=== PATIENT | male | born 1940 | race Caucasian/White ===

== ENCOUNTER 2018-02-16 10:49 | Emergency (ER) | payer OTHER, MEDICARE, SELFPAY ==
[2018-02-16 10:51] VITALS: BP 147/63; PULSE 80; RESP 15; TEMP 36.3; O2SAT 96; BMI 42.2
--- NOTE | 2018-02-16 11:31 | ED.VISSUMM ---
- ER Visit Summary Date of Service: 02/16/18 Chief Complaint: Right facial droop History of Present Illness: The patient is a 77 M who was sent for CAT scan. He complains of right facial droop and inability to completely close his right eye over the past 3-4 days. He was seen at the [facility] in the office today. His physician stated that she could not be sure if it was Kent's palsy or not and he needed to go to the ER to get a CAT scan to be sure. The patient has no other neurological symptoms. He denies any extremity weakness or paresthesias. No speech difficulty or slurred speech. No aphasia. He also complains of some discomfort behind his right ear and on the right side of his face. No history of prior similar symptoms. No history of coronary disease or stroke. 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 I am not concerned for stroke. I explained to patient and family that in my medical opinion CT imaging is not indicated. They are agreeable with the plan to defer and treat for Kent's palsy. He was given a prescription for Medrol Dosepak. He was advised to monitor his blood sugars since he is an insulin-dependent diabetic. They were instructed on eye care including artificial tears. He was instructed on signs and symptoms to monitor for and conditions under which to return to the emergency department. Treatment Plan: [] Disposition: Discharge Impression: Kent's palsy This note was generated with [employer] dictation software. It may contain incorrect words, spelling, and punctuation that were not noted in review of the chart prior to signing ED Disposition - Plan for ED Patient: Chief Complaint: Neuro S/Sx Referrals: Adan Hernandez MD [Primary Care Provider] -
--- NOTE | 2018-02-16 11:34 | ED.DCSUM_ITS ---
- ER Visit Summary Date of Service: 02/16/18 Chief Complaint: Right facial droop History of Present Illness: The patient is a 77 M who was sent for CAT scan. He complains of right facial droop and inability to completely close his right eye over the past 3-4 days. He was seen at the [facility] in the office today. His physician stated that she could not be sure if it was Kent's palsy or not and he needed to go to the ER to get a CAT scan to be sure. The patient has no other neurological symptoms. He denies any extremity weakness or paresthesias. No speech difficulty or slurred speech. No aphasia. He also complains of some discomfort behind his right ear and on the right side of his face. No history of prior similar symptoms. No history of coronary disease or stroke. He is treated for diabetes hypertension and high cholesterol as well as M?ni?re' s disease Physical Examination: Afebrile vitals are unremarkable Moist mucous membranes Heart regular rate and rhythm Lungs are clear Abdomen soft NIH stroke scale is 2 due to right-sided facial weakness he has weakness of the upper and lower face there is facial droop there are asymmetric forehead creases there is asymmetry on raising his eyebrows he is unable to tightly close the right eye there are no other focal or lateralizing neurological deficits Test Results: Not indicated Emergency Department Course and Treatment: 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 I am not concerned for stroke. I explained to patient and family that in my medical opinion CT imaging is not indicated. They are agreeable with the plan to defer and treat for Kent's palsy. He was given a prescription for Medrol Dosepak. He was advised to monitor his blood sugars since he is an insulin- dependent diabetic. They were instructed on eye care including artificial tears. He was instructed on signs and symptoms to monitor for and conditions under which to return to the emergency department. Treatment Plan: [] Disposition: Discharge Impression: Kent's palsy This note was generated with [employer] dictation software. It may contain incorrect words, spelling, and punctuation that were not noted in review of the chart prior to signing ED Disposition - Plan for ED Patient: Chief Complaint: Neuro S/Sx Referrals: Adan Hernandez MD [Primary Care Provider] -
--- NOTE | 2018-02-16 11:34 | ED.DEP ---
ED Disposition - Plan for ED Patient: Chief Complaint: Neuro S/Sx Instructions: ED [place] Palsy Prescriptions: MethylPREDNISolone DosePak [Medrol DosePak] 4 mg PO UD #1 box Referrals: Adan Hernandez MD [Primary Care Provider] -
[2018-02-16 12:05] VITALS: BP 123/67; PULSE 62; RESP 18; O2SAT 94
--- NOTE | 2018-02-16 12:09 | ED.RN ---
PT HAVING R FACIAL DROOP. NO OTHER COMPLAINTS
== END 2018-02-16 12:10 | disposition home or self-care (01) ==
PROVIDERS: Emergency Provider Emergency Medicine; Family Provider Family Medicine; PCP Family Medicine
DX: G51.0 Bell's palsy (principal); R29.702 NIHSS score 2; E11.9 Type 2 diabetes mellitus without complications; I10 Essential (primary) hypertension; E78.00 Pure hypercholesterolemia, unspecified; H81.09 Meniere's disease, unspecified ear; Z79.4 Long term (current) use of insulin; Z79.899 Other long term (current) drug therapy
CPT/HCPCS: 99282

== ENCOUNTER 2018-12-27 09:05 | Emergency (ER) | payer MEDICARE, SELFPAY ==
[2018-12-27 09:07] VITALS: PULSE 88; RESP 14; TEMP 36.6; O2SAT 95; BMI 41.8
--- NOTE | 2018-12-27 09:23 | CT_ITS ---
STUDY: CT ABDOMEN AND PELVIS WITHOUT CONTRAST REASON FOR EXAM: Male, 78 years old. 4 day history of low back pain and constipation. RADIATION DOSAGE (If Supplied By Facility): CTDIvol = ( 23.60 ) mGy, DLP = ( 1291.17 ) mGycm TECHNIQUE: Transaxial images were obtained from the dome of the diaphragm to the symphysis pubis without oral contrast, and without intravenous contrast. Sagittal and coronal images were reconstructed. Individualized dose optimization techniques were used for this CT. COMPARISON: Comparison is made with prior study dated February 01, 2009. FINDINGS: Mild degree of increased markings at the lung bases suggestive of scarring. There is evidence of calcific pleural plaques on the right side. Coronary artery calcification. Normal liver. Small gallstones. Normal spleen. There is diffuse enlargement of the pancreas with daren-pancreatic edema suggesting acute pancreatitis. Normal bilateral adrenal glands. 3 mm calculus in the lower pole calyx of the right kidney. Stable 1.5 cm cyst in the lateral inferior pole of the left kidney. Normal visualized stomach. Normal small intestine. Normal colon. The appendix is visualized and appears normal. There is diffuse atherosclerotic calcification of the abdominal aorta, without a demonstrated aneurysm. Normal inferior vena cava. There is borderline retroperitoneal lymphadenopathy with enlarged nodes no greater than 10mm in the short axis diameter. Normal urinary bladder. Small lymph nodes in the inguinal regions bilaterally. There are diffuse degenerative changes of the visualized lumbar spine. Loss of the normal lumbar lordosis. CT/Abdomen/Pelvis without Cont IMPRESSION: Small gallstones. Inflammatory changes seen in the region of the pancreas suggestive of pancreatitis. Small left renal cyst. 3 mm calculus in the lower pole calyx of the right kidney. Electronically Signed: Edi Cormier, at 10:16 EST , Service support ,
[2018-12-27 09:56] LABS: ALB/GLOB Ratio 0.7 RATIO (0.9-2.4); AST(SGOT) 26 U/L (15-37); Absolute Lymphocyte Count 1.09 X10^3/ul (0.83-4.51); Absolute Neutrophil Count 7.3 X10^3/uL (2.0-7.7); Alanine Aminotransfer ALT/SGPT 23 U/L (16-61); Albumin, Serum 3.3 g/dL (3.2-5.0); Alkaline Phosphatase 154 U/L (45-117); Anion Gap 7 (5-15); BUN 20 mg/dL (7-18); BUN/Creat Ratio 15.3 RATIO (10-20); Basophil# 0.03 X10^3/uL; Basophil% 0.3 % (0-1); Calcium,Total 8.9 mg/dL (8.5-10.1); Chloride 103 mmol/L (98-107); Creatinine, Serum 1.31 mg/dL (0.70-1.30); EST Glomerular Filtration Rate 56 mL/min (>60); Eosinophil# 0.14 X10^3/uL; Eosinophils% 1.5 % (0-5); Est Glom Filt Rate - Afr Amer 68 mL/min (>60); Estimated Creatinine Clearance 47.99 ml/min; Globulin 4.5 g/dL (2.2-4.2); Glucose 122 mg/dL (74-106); Hematocrit 46.5 % (40-54); Hemoglobin 14.3 g/dl (13.0-16.5); Lipase 44 U/L (73-393); Lymphocyte # 1.09 X10^3/ul (4.0); Lymphocyte % 11.8 % (19-41); Mean Corp Hgb Conc 30.8 g/gl (32-36); Mean Corpuscular Hgb 28.7 pg (27.0-32.0); Mean Corpuscular Volume 93.4 fL (80-94); Mean Platelet Vol. 9.9 fl (6.2-12.0); Monocyte# 0.68 X10^3/uL; Monocyte% 7.4 % (0-10); Neutrophil # 7.28 X10^3/uL (2.7-7.7); Neutrophil % 78.8 % (47-70); Platelet Count 206 K/mm3 (150-450); Potassium 4.4 mmol/L (3.5-5.1); Protein, Total 7.8 g/dL (6.4-8.2); RBC Distribution Width CV 14.7 % (11.6-14.6); RBC Distribution Width SD 48.4 fl (35.1-43.9); Red Blood Count 4.98 M/mm3 (4.6-6.2); Sodium Level 139 mmol/L (136-145); White Blood Count 9.2 K/mm3 (4.4-11.0)
[2018-12-27 10:01] LABS: POSITIVE COUNT NO; POSITIVE DIFFERENTIAL NO; POSITIVE MORPHOLOGY NO
[2018-12-27 11:39] LABS: Mucous, Urine 0 SEEN /hpf (<or=2+)
[2018-12-27 11:40] LABS: Color, Urine Yellow (Yellow); Glucose, Dipstick Normal (Normal); Ketone-Dipstick Negative (Negative); Leukocyte Esterase-Dipstick 500 /ul (Negative); Nitrite-Dipstick Negative (Negative); Occult Blood-Urine 10 /ul (Negative); Protein-Dipstick Negative (Negative); Urine Bilirubin Dipstick Negative (Negative); Urine Clarity Clear (Clear); Urine Urobilinogen Normal (Normal)
[2018-12-27 11:50] LABS: White Blood Cells >100 SEEN /hpf (0-5)
[2018-12-27 11:51] LABS: Bacteria 2+ /hpf (None Seen); Red Blood Cells-Urine 5-10 SEEN /hpf (0-5); Squamous Epithelial Cells - UA 5-10 SEEN /hpf (0-5)
--- NOTE | 2018-12-27 12:25 | ED.VISSUMM ---
- ER Visit Summary Date of Service: 12/27/18 Chief Complaint: Back pain History of Present Illness: The patient is a 78 M who states that for the past 4 days he has had an aching in his low back. It is on both sides. He notes is worse with movement. He states that on December 17 he was diagnosed with a urinary tract infection and took Keflex for 7 days. States this cleared his painful urination but not his back pain. [facility]. Patient has multiple medical problems including venous stasis of lower extremities BPH chronic renal failure lumbar disc disease diabetes and hypertension. He denies any fevers. Patient thinks that maybe this is a kidney stone disease had that before. Physical Examination: Gen: Well-nourished well-developed Head: Normocephalic atraumatic morbidly obese Eyes: Perrl EOMI ENT: TMs clear no rhinorrhea moist mucous membranes Neck: Supple no lymphadenopathy no JVD nontender CVS: Regular rate rhythm no murmurs normal S1-S2 Respiratory: No distress clear to auscultation bilaterally chest nontender Abdomen: Soft nontender nondistended normal bowel sounds no masses Back: Tender to palpation in lumbar paraspinal musculature bilaterally Extremity: 2-3+ edema with venous stasis chronic skin changes Skin: Normal color no rash Neuro: alert orientated ?3 CN II-XII intact normal strength sensation reflexes gait cerebellar Psych: Normal affect normal mood Test Results: Urine greater than 100 white cells 5-10 red blood cells 2+ bacteria negative nitrates. White count is normal 9.2. CT the flank does not demonstrate any obvious kidney stone. Emergency Department Course and Treatment: I will write the patient Cipmaribell Stoddardco as we await urine culture. [facility] Impression: 1. Acute low back pain 2. Urinary tract infection This note was generated with [employer] dictation software. It may contain incorrect words, spelling, and punctuation that were not noted in review of the chart prior to signing ED Disposition - Plan for ED Patient: Disposition: Home or Assisted Living Instructions: ED Constipation, ED UTI Pyelonephritis Male Prescriptions: Hydrocodone Bitart/Apap 5-325 [[place] 5MG-325MG] 1 tab PO Q6H PRN PRN 3 Days #10 tab PRN Reason: Pain Ciprofloxacin [Cipro] 500 mg PO BID #14 tab Referrals: Adan Hernandez MD [Primary Care Provider] - Additional Instructions: Follow-up with your primary care physician in 5-7 days Return if worsening or concerns (fever vomiting worsening pain
--- NOTE | 2018-12-27 12:29 | ED.DCSUM_ITS ---
- ER Visit Summary Date of Service: 12/27/18 Chief Complaint: Back pain History of Present Illness: The patient is a 78 M who states that for the past 4 days he has had an aching in his low back. It is on both sides. He notes is worse with movement. He states that on December 17 he was diagnosed with a u rinary tract infection and took Keflex for 7 days. States this cleared his painful urination but not his back pain. [facility]. Patient has multiple medical problems including venous stasis of lower extremities BPH chronic renal failure lumbar disc disease diabetes and hypertension. He denies any fevers. Patient thinks that maybe this is a kidney stone disease had that before. Physical Examination: Gen: Well-nourished well-developed Head: Normocephalic atraumatic morbidly obese Eyes: Perrl EOMI ENT: TMs clear no rhinorrhea moist mucous membranes Neck: Supple no lymphadenopathy no JVD nontender CVS: Regular rate rhythm no murmurs normal S1-S2 Respiratory: No distress clear to auscultation bilaterally chest nontender Abdomen: Soft nontender nondistended normal bowel sounds no masses Back: Tender to palpation in lumbar paraspinal musculature bilaterally Extremity: 2-3+ edema with venous stasis chronic skin changes Skin: Normal color no rash Neuro: alert orientated ?3 CN II-XII intact normal strength sensation reflexes gait cerebellar Psych: Normal affect normal mood Test Results: Urine greater than 100 white cells 5-10 red blood cells 2+ bacteria negative nitrates. White count is normal 9.2. CT the flank does not demonstrate any obvious kidney stone. Emergency Department Course and Treatment: I will write the patient Cipmaribell Stoddardco as we await urine culture. [facility] Impression: 1. Acute low back pain 2. Urinary tract infection This note was generated with [employer] dictation software. It may contain incorrect words, spelling, and punctuation that were not noted in review of the chart prior to signing ED Disposition - Plan for ED Patient: Disposition: Home or Assisted Living Instructions: ED Constipation, ED UTI Pyelonephritis Male Prescriptions: Hydrocodone Bitart/Apap 5-325 [[place] 5MG-325MG] 1 tab PO Q6H PRN PRN 3 Days #10 tab PRN Reason: Pain Ciprofloxacin [Cipro] 500 mg PO BID #14 tab Referrals: Adan Hernandez MD [Primary Care Provider] - Additional Instructions: Follow-up with your primary care physician in 5-7 days Return if worsening or concerns (fever vomiting worsening pain
[2018-12-27 12:43] VITALS: PULSE 92; RESP 16; O2SAT 95
== END 2018-12-27 12:44 | disposition home or self-care (01) ==
PROVIDERS: Emergency Provider Emergency Medicine; Family Provider Family Medicine; PCP Family Medicine
DX: N39.0 Urinary tract infection, site not specified (principal); M54.5 Low back pain; E66.01 Morbid (severe) obesity due to excess calories; Z87.442 Personal history of urinary calculi; Z87.440 Personal history of urinary (tract) infections
CPT/HCPCS: 74176; 80053; 81001; 83690; 85025; 87086; 87088; 87186; 99283; A4216

== ENCOUNTER 2019-01-04 10:41 | Emergency (ER) | payer MEDICARE, SELFPAY ==
[2019-01-04 10:42] VITALS: BP 139/71; PULSE 76; RESP 20; TEMP 36.4; O2SAT 94; BMI 41.1
--- NOTE | 2019-01-04 11:21 | ED.DCSUM_ITS ---
- ER Visit Summary Date of Service: 01/04/19 Chief Complaint: Urinary retention History of Present Illness: The patient is a 78 M who presents for urinary retention. Patient states since yesterday he has been having difficulty urinating, was only able to initiate a very small stream early this morning. He has not urinated since. He was treated 1 week ago for a urinary tract infection and completed a course of Cipro. Patient continues to have bilateral low back pain and lower abdominal pain. He states he had a CT scan last visit that did not show any kidney stones. Patient has history of diabetes, chronic kidney disease, and does not know if he has any history of prostate disease. Physical Examination: Vital signs: afebrile, hemodynamically stable, no hypoxia on room air General: well nourished, well developed, in no distress sitting on the edge of the bed Skin: warm, dry, small area of dry skin and excoriation on the right lower abdomen, no pallor HEENT: normocephalic and atraumatic; PERRL, EOMI, moist mucous membranes Cardiovascular: regular rate and rhythm without murmurs Respiratory: No increased work of breathing, lungs are clear to auscultation bilaterally, no rales, rhonchi or wheezing Abdominal: Abdomen is soft, obese, nontender with normoactive bowel sounds, no guarding or rebound, no masses, no CVA tenderness MSK: Moves all extremities, no deformities, normal strength Neuro: Awake and alert, oriented ?4. No facial droop, sensation and motor functi on intact and symmetric Test Results: Abnormal Lab Results 01/04/19 01/04/19 01/04/19 11:25 11:25 12:35 WBC 9.4 RBC 5.13 Hgb 14.3 Hct 47.3 MCV 92.2 MCH 27.9 MCHC 30.2 L RDW 14.7 H RDW Differential 47.9 H Plt Count 197 MPV 9.3 Immature Gran % (Auto) 0.200 Neut % (Auto) 81.5 H Lymph % (Auto) 9.2 L [place] % (Auto) 7.0 Eos % (Auto) 1.8 Baso % (Auto) 0.3 Absolute Neuts (auto) 7.7 Absolute Lymphs (auto) 0.87 Total Counted Not Reportable Sodium 139 Potassium 4.1 Chloride 104 Carbon Dioxide 29.0 Anion Gap 6 BUN 26 H Creatinine 1.35 H Estim Creat Clear Calc 46.56 Est GFR (MDRD) Af Amer 66 Est GFR (MDRD) Non-Af 54 L BUN/Creatinine Ratio 19.3 Glucose 200 H Calcium 9.3 Total Bilirubin 0.50 AST 28 ALT 26 Alkaline Phosphatase 121 H Total Protein 7.8 Albumin 3.2 Globulin 4.6 H Albumin/Globulin Ratio 0.7 L Lipase 50 L Urine Color Yellow Urine Clarity Clear Urine pH 6.0 Ur Specific [place] 1.015 Urine Protein Negative Urine Glucose (UA) Normal Urine Ketones Negative Urine Occult Blood Negative Urine Nitrite Negative Urine Bilirubin Negative Urine Urobilinogen Normal Ur Leukocyte Esterase Negative Urine RBC 0 SEEN Urine WBC 0-5 SEEN Ur Squamous Epith Cells 0-5 SEEN Urine Bacteria 0 SEEN Urine Mucus 0 SEEN Emergency Department Course and Treatment: Patient presents for inability to urinate after 2 rounds of antibiotics for UTIs. Bladder scan was performed that showed 160 cc of urine in the bladder. Patient was able to void this amount without any difficulty. Urinalysis was negative for infection. Labs were performed showing patient's kidney function at baseline. No leukocytosis or other abnormalities. CT the abdomen and pelvis was not repeated, as patient had one performed 1 week ago. It showed no kidney stones at that time. There was some mild peripancreatic inflammation CT, however patient has a normal lipase, no hepatic derangements, and has no associated tenderness in this area of his abdomen no upper back pain. His complaint is low back pain and lower abdominal discomfort. On further discussion with the patient, it turns out he ran out of his [place] 2 days ago. He has an appointment with his primary care doctor in 4 days and is looking for pain control. Patient was given a short prescription for norco for pain until he has his appointment on Monday. No indication for antibiotics at this time, as patient has no sign of persistent infection. Treatment Plan: [] Disposition: [] Impression: low back pain, history of recent UTIs This note was generated with [employer] dictation software. It may contain incorrect words, spelling, and punctuation that were not noted in review of the chart prior to signing ED Disposition - Plan for ED Patient: Disposition: Home or Assisted Living Instructions: ED Flank Pain Uncertain Cause Prescriptions: Hydrocodone Bitart/Apap 5-325 [[place] 5MG-325MG] 1 tab PO Q6H PRN PRN 3 Days #12 tab PRN Reason: Pain Referrals: Adan Hernandez MD [NON-STAFF] - Keep [facility] appointment Additional Instructions: Keep your appointment with your doctor next Monday. You may use the pain medication as needed for your low back pain. Drink plenty of water to stay hydrated. If you develop high fever, severe abdominal pain, nausea or vomiting, diarrhea, dizziness or lightheadedness, or inability to urinate for greater than 12 hours, please return immediately to the emergency department for another evaluation.
[2019-01-04 11:33] LABS: Absolute Lymphocyte Count 0.87 X10^3/ul (0.83-4.51); Absolute Neutrophil Count 7.7 X10^3/uL (2.0-7.7); Basophil# 0.03 X10^3/uL; Basophil% 0.3 % (0-1); Eosinophil# 0.17 X10^3/uL; Eosinophils% 1.8 % (0-5); Hematocrit 47.3 % (40-54); Hemoglobin 14.3 g/dl (13.0-16.5); Lymphocyte # 0.87 X10^3/ul (4.0); Lymphocyte % 9.2 % (19-41); Mean Corp Hgb Conc 30.2 g/gl (32-36); Mean Corpuscular Hgb 27.9 pg (27.0-32.0); Mean Corpuscular Volume 92.2 fL (80-94); Mean Platelet Vol. 9.3 fl (6.2-12.0); Monocyte# 0.66 X10^3/uL; Neutrophil # 7.69 X10^3/uL (2.7-7.7); Neutrophil % 81.5 % (47-70); Platelet Count 197 K/mm3 (150-450); RBC Distribution Width CV 14.7 % (11.6-14.6); RBC Distribution Width SD 47.9 fl (35.1-43.9); Red Blood Count 5.13 M/mm3 (4.6-6.2); White Blood Count 9.4 K/mm3 (4.4-11.0)
[2019-01-04 11:35] LABS: POSITIVE COUNT NO; POSITIVE DIFFERENTIAL NO; POSITIVE MORPHOLOGY NO
[2019-01-04 11:48] LABS: ALB/GLOB Ratio 0.7 RATIO (0.9-2.4); AST(SGOT) 28 U/L (15-37); Alanine Aminotransfer ALT/SGPT 26 U/L (16-61); Albumin, Serum 3.2 g/dL (3.2-5.0); Alkaline Phosphatase 121 U/L (45-117); Anion Gap 6 (5-15); BUN 26 mg/dL (7-18); BUN/Creat Ratio 19.3 RATIO (10-20); Calcium,Total 9.3 mg/dL (8.5-10.1); Chloride 104 mmol/L (98-107); Creatinine, Serum 1.35 mg/dL (0.70-1.30); EST Glomerular Filtration Rate 54 mL/min (>60); Est Glom Filt Rate - Afr Amer 66 mL/min (>60); Estimated Creatinine Clearance 46.56 ml/min; Globulin 4.6 g/dL (2.2-4.2); Glucose 200 mg/dL (74-106); Lipase 50 U/L (73-393); Potassium 4.1 mmol/L (3.5-5.1); Protein, Total 7.8 g/dL (6.4-8.2); Sodium Level 139 mmol/L (136-145)
[2019-01-04 12:40] LABS: Bacteria 0 SEEN /hpf (None Seen); Mucous, Urine 0 SEEN /hpf (<or=2+); Red Blood Cells-Urine 0 SEEN /hpf (0-5)
[2019-01-04 13:02] LABS: Color, Urine Yellow (Yellow); Glucose, Dipstick Normal (Normal); Ketone-Dipstick Negative (Negative); Leukocyte Esterase-Dipstick Negative /ul (Negative); Nitrite-Dipstick Negative (Negative); Occult Blood-Urine Negative /ul (Negative); Protein-Dipstick Negative (Negative); Specific Gravity, Urine 1.015 (1.002-1.030); Urine Bilirubin Dipstick Negative (Negative); Urine Clarity Clear (Clear); Urine Urobilinogen Normal (Normal)
[2019-01-04 13:05] LABS: Squamous Epithelial Cells - UA 0-5 SEEN /hpf (0-5); White Blood Cells 0-5 SEEN /hpf (0-5)
[2019-01-04] MEDS: HYDROcodone Bitartrate/Apap 5/325 Tablet PO (13:49)
[2019-01-04 13:52] VITALS: BP 111/93; PULSE 67; RESP 18; O2SAT 96
== END 2019-01-04 13:54 | disposition home or self-care (01) ==
PROVIDERS: Emergency Provider Emergency Medicine
DX: M54.5 Low back pain (principal); R33.9 Retention of urine, unspecified; E11.22 Type 2 diabetes mellitus with diabetic chronic kidney disease; N18.9 Chronic kidney disease, unspecified; Z87.440 Personal history of urinary (tract) infections
CPT/HCPCS: 80053; 81001; 83690; 85025; 87086; 99284